=== PATIENT | male | born 1970 | race African-American/Black ===

== ENCOUNTER 2017-08-21 20:25 | Inpatient (IN) | payer MEDICAID ==
[~2017-08-21] VITALS: Ht 182.9 cm; Wt 75.6 kg
[~2017-08-21 20:25] MED LIST: LACT1CAP24 PO; LEVO750T26 PO; NICO-486 TD; TRAM-47 PO; ZOLP-413 PO
[2017-08-21 22:02] LABS: MEAN CORPUSCULAR HEMOGLOBIN 33.7 pg (27.5-34.5); MEAN CORPUSCULAR HGB CONC 33.2 g/dL (33.2-36.2); MEAN CORPUSCULAR VOLUME 101.4 fL (81-97); PLATELET COUNT 170 x10^3/uL (130-400); RED BLOOD COUNT 4.06 x10^6/uL (4.38-5.82); RED CELL DISTRIBUTION WIDTH 12.7 % (9.4-14.8)
[2017-08-21 22:10] LABS: ALANINE AMINOTRANSFERASE 111 U/L (12-78); ALBUMIN 2.6 g/dL (3.4-5.0); ANION GAP 8 mmol/L (5-15); CALCIUM 8.1 mg/dL (8.5-10.1); CHLORIDE 102 mmol/L (98-107); CREATININE 1.94 mg/dL (0.7-1.3)
[2017-08-21 22:13] LABS: ALKALINE PHOSPHATASE 82 U/L (45-117); BILIRUBIN,TOTAL 1.2 mg/dL (0.2-1.0); TOTAL PROTEIN 7.1 g/dL (6.4-8.2)
[2017-08-21 22:44] LABS: BASOPHILS % (AUTO) 0 % (0-1); EOSINOPHILS # (AUTO) 0.27 x10^3/uL (0-0.4); EOSINOPHILS % (AUTO) 2 % (1-7); LYMPHOCYTES # (AUTO) 1.28 x10^3/uL (1-3.4); LYMPHOCYTES % (AUTO) 8 % (22-44); MD SCAN; MONOCYTES % (AUTO) 8 % (2-9); NEUTROPHILS # (AUTO) 12.61 x10^3/uL (1.8-6.8); NEUTROPHILS % (AUTO) 82 % (42-75)
[2017-08-21] MEDS ORDERED: CEFTRIAXONE PMX 1GM/50ML 50 ML IV ONE (23:30)
[2017-08-21] MEDS ORDERED: SODIUM CHLORIDE 0.9% 1,000ML IVBOLUS ONE (23:30)
[2017-08-21 23:49] LABS: AMPHETAMINE SCREEN, URINE Positive (Negative); BARBITURATE SCREEN, URINE Negative (Negative); BENZODIAZEPINE SCREEN, URINE Negative (Negative); CANNABINOID SCREEN, URINE Positive (Negative); COCAINE SCREEN, URINE Negative (Negative); METHADONE SCREEN, URINE Negative (Negative); OPIATE SCREEN, URINE Negative (Negative)
[2017-08-21] MEDS ORDERED: CEFTRIAXONE PMX 1GM/50ML 50 ML ONE (23:57)
[2017-08-22] MEDS ORDERED: PHARMACY INSTRUCTION MC SCH (01:00)
[2017-08-22] MEDS ORDERED: POTASSIUM CHLORIDE 20 MEQ TAB.ER.PRT PO ONE (01:00)
[2017-08-22] MEDS ORDERED: ONDANSETRON 2MG/ML, 2ML IVPush PRN (01:00)
[2017-08-22] MEDS ORDERED: POLYETHYLENE GLYCOL 17 GM PACKET PO PRN (01:00)
[2017-08-22] MEDS ORDERED: DIPHENHYDRAMINE 25 MG CAPSULE PO PRN (01:00)
[2017-08-22] MEDS ORDERED: hydrALAzine 20 MG/ML, 1ML IVPush PRN (01:00)
[2017-08-22] MEDS: SODIUM CHLORIDE 0.9% 1,000 ML IV SCH ×3 (02:15→16:41)
[2017-08-22] MEDS: AMPICILLIN/SULBACTAM 3 GM in SODIUM CHLORIDE 0.9% 100 ML IV SCH ×4 (02:15→18:46)
[2017-08-22 02:39] VITALS: BP 106/70
[2017-08-22 06:15] VITALS: BP 106/70
[2017-08-22 06:58] VITALS: BP 108/68
[2017-08-22] MEDS ORDERED: ENOXAPARIN 30 MG/0.3 ML SQ SCH (09:00)
[2017-08-22] MEDS: ENOXAPARIN 40 MG/0.4 ML SQ SCH (09:29)
[2017-08-22 13:55] VITALS: BP 111/68
[2017-08-22 20:01] VITALS: BP 141/88
[2017-08-23] MEDS: AMPICILLIN/SULBACTAM 3 GM in SODIUM CHLORIDE 0.9% 100 ML IV SCH ×4 (01:35→18:24)
[2017-08-23] MEDS: HYDROcodone/APAP 5/325 TABLET PO PRN ×2 (01:41→08:12)
[2017-08-23 02:36] VITALS: BP 167/77
[2017-08-23 05:11] LABS: MEAN CORPUSCULAR HEMOGLOBIN 33.5 pg (27.5-34.5); MEAN CORPUSCULAR HGB CONC 33.1 g/dL (33.2-36.2); MEAN CORPUSCULAR VOLUME 101.3 fL (81-97); MEAN PLATELET VOLUME 8.9 fL (7.4-10.4); PLATELET COUNT 185 x10^3/uL (130-400); RED CELL DISTRIBUTION WIDTH 12.9 % (9.4-14.8)
[2017-08-23 05:23] LABS: CHLORIDE 107 mmol/L (98-107)
[2017-08-23 05:31] LABS: ANION GAP 7 mmol/L (5-15); CALCIUM 8.2 mg/dL (8.5-10.1); CREATININE 1.13 mg/dL (0.7-1.3)
[2017-08-23] MEDS: SODIUM CHLORIDE 0.9% 1,000 ML IV SCH ×2 (05:56→16:23)
[2017-08-23 06:13] LABS: BASOPHILS # (AUTO) 0.05 x10^3/uL (0-0.1); BASOPHILS % (AUTO) 0 % (0-1); EOSINOPHILS # (AUTO) 0.37 x10^3/uL (0-0.4); EOSINOPHILS % (AUTO) 2 % (1-7); LYMPHOCYTES # (AUTO) 1.44 x10^3/uL (1-3.4); LYMPHOCYTES % (AUTO) 9 % (22-44); MD SCAN; MONOCYTES # (AUTO) 1.33 x10^3/uL (0.2-0.8); MONOCYTES % (AUTO) 9 % (2-9); NEUTROPHILS # (AUTO) 12.44 x10^3/uL (1.8-6.8); NEUTROPHILS % (AUTO) 80 % (42-75)
[2017-08-23 08:04] VITALS: BP 128/65
[2017-08-23] MEDS: ENOXAPARIN 40 MG/0.4 ML SQ SCH (08:10)
[2017-08-23] MEDS: POTASSIUM CHLORIDE 20 MEQ TAB.ER.PRT PO SCH ×2 (11:42→16:23)
[2017-08-23 14:16] VITALS: BP 137/80
[2017-08-23 19:37] VITALS: BP 144/85
[2017-08-24] MEDS: AMPICILLIN/SULBACTAM 3 GM in SODIUM CHLORIDE 0.9% 100 ML IV SCH ×4 (01:08→20:23)
[2017-08-24] MEDS: SODIUM CHLORIDE 0.9% 1,000 ML IV SCH ×2 (02:12→14:17)
[2017-08-24 02:23] VITALS: BP 132/56
[2017-08-24 05:14] LABS: MEAN CORPUSCULAR HEMOGLOBIN 33.6 pg (27.5-34.5); MEAN CORPUSCULAR HGB CONC 33.1 g/dL (33.2-36.2); MEAN CORPUSCULAR VOLUME 101.3 fL (81-97); PLATELET COUNT 243 x10^3/uL (130-400); RED BLOOD COUNT 3.57 x10^6/uL (4.38-5.82); RED CELL DISTRIBUTION WIDTH 12.7 % (9.4-14.8)
[2017-08-24 05:18] LABS: CHLORIDE 110 mmol/L (98-107)
[2017-08-24 05:31] LABS: ALANINE AMINOTRANSFERASE 72 U/L (12-78); ALBUMIN 2.1 g/dL (3.4-5.0); ALKALINE PHOSPHATASE 73 U/L (45-117); ANION GAP 5 mmol/L (5-15); BILIRUBIN,TOTAL 0.6 mg/dL (0.2-1.0); CALCIUM 7.9 mg/dL (8.5-10.1); CREATININE 1.09 mg/dL (0.7-1.3); TOTAL PROTEIN 6.4 g/dL (6.4-8.2)
[2017-08-24 06:21] LABS: BASOPHILS # (AUTO) 0.08 x10^3/uL (0-0.1); BASOPHILS % (AUTO) 1 % (0-1); EOSINOPHILS # (AUTO) 0.61 x10^3/uL (0-0.4); EOSINOPHILS % (AUTO) 4 % (1-7); LYMPHOCYTES # (AUTO) 1.87 x10^3/uL (1-3.4); LYMPHOCYTES % (AUTO) 11 % (22-44); MD SCAN; MONOCYTES # (AUTO) 1.99 x10^3/uL (0.2-0.8); MONOCYTES % (AUTO) 11 % (2-9); NEUTROPHILS # (AUTO) 13.07 x10^3/uL (1.8-6.8); NEUTROPHILS % (AUTO) 74 % (42-75)
[2017-08-24 06:50] VITALS: BP 126/78
[2017-08-24] MEDS: ENOXAPARIN 40 MG/0.4 ML SQ SCH (07:54)
[2017-08-24] MEDS ORDERED: MAGNESIUM SULFATE PMX 2GM/50ML 50 ML IV ONE (08:00)
[2017-08-24] MEDS ORDERED: PHARMACOKINETIC MONITORING MC PRN (08:00)
[2017-08-24] MEDS ORDERED: VANCOMYCIN PER PHARMACY MC PRN (08:00)
[2017-08-24 13:27] VITALS: BP 132/87
[2017-08-24] MEDS: VANCOMYCIN 1,700 MG in SODIUM CHLORIDE 0.9% 250 ML IV SCH (16:23)
[2017-08-24 18:39] VITALS: BP 132/81
[2017-08-24] MEDS: ACETAMINOPHEN 325 MG TABLET PO PRN (20:25)
[2017-08-25] MEDS: ACETAMINOPHEN 325 MG TABLET PO PRN (01:20)
[2017-08-25 02:51] VITALS: BP 148/82
[2017-08-25] MEDS: AMPICILLIN/SULBACTAM 3 GM in SODIUM CHLORIDE 0.9% 100 ML IV SCH ×2 (02:57→08:27)
[2017-08-25] MEDS: SODIUM CHLORIDE 0.9% 1,000 ML IV SCH (02:57)
[2017-08-25] MEDS: VANCOMYCIN 1,700 MG in SODIUM CHLORIDE 0.9% 250 ML IV SCH (04:19)
[2017-08-25 05:14] LABS: MEAN CORPUSCULAR HEMOGLOBIN 33.4 pg (27.5-34.5); MEAN CORPUSCULAR HGB CONC 32.8 g/dL (33.2-36.2); MEAN CORPUSCULAR VOLUME 101.8 fL (81-97); MEAN PLATELET VOLUME 8.5 fL (7.4-10.4); PLATELET COUNT 300 x10^3/uL (130-400); RED BLOOD COUNT 3.75 x10^6/uL (4.38-5.82); RED CELL DISTRIBUTION WIDTH 12.6 % (9.4-14.8)
[2017-08-25 05:20] LABS: % IRON SATURATION 25 % (20-55); IRON LEVEL 56 mcg/dL (65-175); TOTAL IRON BINDING CAPACITY 221 mcg/dL (250-450)
[2017-08-25 05:58] LABS: MD YES
[2017-08-25 06:05] LABS: <PLATELET ESTIMATE> ADEQUATE; BAND#(MANUAL) 0.65 x10^3/uL; BANDS%(MANUAL) 4 % (0-7); BASOS#(MANUAL) 0.33 x10^3/uL (0-0.1); BASOS% (MANUAL) 2 % (0-1); EOS#(MANUAL) 0.82 x10^3/uL (0.0-0.4); EOS% (MANUAL) 5 % (1-7); LYMPH#(MANUAL) 2.28 x10^3/uL (1-3.4); LYMPHS% (MANUAL) 14 % (22-44); METAMYELOCYTES# (MANUAL) 0.65 x10^3/uL (0-0); METAMYELOCYTES% (MANUAL) 4 % (0-1); MONOS#(MANUAL) 1.96 x10^3/uL (0.3-2.7); MONOS% (MANUAL) 12 % (2-9); MYELOCYTES# (MANUAL) 0.82 x10^3/uL (0-0); MYELOCYTES% (MANUAL) 5 % (0-0); SEGS% (MANUAL) 54 % (42-75)
[2017-08-25 06:06] LABS: LARGE PLATELETS 1+
[2017-08-25 08:07] VITALS: BP 143/82
[2017-08-25] MEDS: ENOXAPARIN 40 MG/0.4 ML SQ SCH (08:28)
[2017-08-25] MEDS: HYDROcodone/APAP 5/325 TABLET PO PRN (13:02)
[2017-08-25 13:40] VITALS: BP 144/92
[2017-08-25 19:01] VITALS: BP 139/75
[2017-08-25] MEDS: SULFAMETH./TRIMETHOPRIM DS 800MG/160MG TABLET PO SCH (20:43)
[2017-08-26 01:38] VITALS: BP 118/80
[2017-08-26 07:45] VITALS: BP 132/82
[2017-08-26] MEDS: SULFAMETH./TRIMETHOPRIM DS 800MG/160MG TABLET PO SCH ×2 (08:33→20:06)
[2017-08-26] MEDS: ENOXAPARIN 40 MG/0.4 ML SQ SCH (08:33)
[2017-08-26 09:41] LABS: HCT (SEDRATE) 38.8 % (39.2-51.8)
[2017-08-26 10:42] LABS: HIGH-SENSITIVITY CRP 6.3 mg/dL (0.02-0.30)
[2017-08-26] MEDS ORDERED: GADOBUTROL 10 MMOL/10 ML PFS ONE (11:06)
[2017-08-26 13:38] VITALS: BP 114/76
[2017-08-26 18:47] VITALS: BP 129/81
[2017-08-26] MEDS: HYDROcodone/APAP 5/325 TABLET PO PRN (20:13)
[2017-08-27 01:04] VITALS: BP 133/79
[2017-08-27 07:22] VITALS: BP 125/77
[2017-08-27] MEDS: HYDROcodone/APAP 5/325 TABLET PO PRN (09:50)
[2017-08-27] MEDS: SULFAMETH./TRIMETHOPRIM DS 800MG/160MG TABLET PO SCH (09:50)
[2017-08-27] MEDS: ENOXAPARIN 40 MG/0.4 ML SQ SCH (09:50)
[2017-08-27 09:52] LABS: MD YES; MEAN CORPUSCULAR HEMOGLOBIN 33.4 pg (27.5-34.5); MEAN CORPUSCULAR VOLUME 101.2 fL (81-97); MEAN PLATELET VOLUME 8.3 fL (7.4-10.4); PLATELET COUNT 398 x10^3/uL (130-400); RED BLOOD COUNT 3.86 x10^6/uL (4.38-5.82); RED CELL DISTRIBUTION WIDTH 12.7 % (9.4-14.8)
[2017-08-27 09:56] LABS: ALANINE AMINOTRANSFERASE 64 U/L (12-78); ALBUMIN 2.7 g/dL (3.4-5.0); ANION GAP 2 mmol/L (5-15); CALCIUM 8.6 mg/dL (8.5-10.1); CHLORIDE 105 mmol/L (98-107); CREATININE 1.55 mg/dL (0.7-1.3)
[2017-08-27 09:59] LABS: ALKALINE PHOSPHATASE 70 U/L (45-117); BILIRUBIN,TOTAL 0.5 mg/dL (0.2-1.0)
[2017-08-27 10:12] LABS: BAND#(MANUAL) 0.36 x10^3/uL; BANDS%(MANUAL) 2 % (0-7); BASOS#(MANUAL) 0.36 x10^3/uL (0-0.1); BASOS% (MANUAL) 2 % (0-1); EOS#(MANUAL) 0.72 x10^3/uL (0.0-0.4); EOS% (MANUAL) 4 % (1-7); LYMPH#(MANUAL) 2.69 x10^3/uL (1-3.4); LYMPHS% (MANUAL) 15 % (22-44); METAMYELOCYTES# (MANUAL) 0.18 x10^3/uL (0-0); METAMYELOCYTES% (MANUAL) 1 % (0-1); MONOS#(MANUAL) 0.54 x10^3/uL (0.3-2.7); MONOS% (MANUAL) 3 % (2-9); MYELOCYTES# (MANUAL) 0.18 x10^3/uL (0-0); MYELOCYTES% (MANUAL) 1 % (0-0); SEG#(MANUAL) 12.89 x10^3/uL (1.8-6.8); SEGS% (MANUAL) 72 % (42-75)
[2017-08-27 10:13] LABS: <PLATELET ESTIMATE> ADEQUATE; LARGE PLATELETS 1+; POLYCHROMASIA 1+
[2017-08-27] MEDS ORDERED: PHARMACY MAY ADJ FOR RENAL FX MC PRN (11:00)
[2017-08-27] MEDS: AMOXICILLIN/CLAV 875-125MG TABLET PO SCH ×2 (12:58→23:02)
[2017-08-27] MEDS: SODIUM CHLORIDE 0.9% 1,000 ML IV SCH ×2 (12:58→23:02)
[2017-08-27] MEDS: DOXYCYCLINE 100MG TABLET PO SCH ×2 (12:58→23:02)
[2017-08-27 13:18] VITALS: BP 114/76
[2017-08-27 13:43] LABS: MICROSCOPIC AUTO
[2017-08-27 13:46] LABS: CULTURE INDICATED? NO
[2017-08-27 19:35] VITALS: BP 105/74
[2017-08-27] MEDS: HEPARIN 5,000 UNITS/ML, 1ML SQ SCH (20:02)
[2017-08-28 00:27] VITALS: BP 130/85
[2017-08-28] MEDS: HEPARIN 5,000 UNITS/ML, 1ML SQ SCH ×2 (04:56→13:00)
[2017-08-28 07:31] VITALS: BP 115/73
[2017-08-28 09:24] LABS: MEAN CORPUSCULAR HEMOGLOBIN 33.4 pg (27.5-34.5); MEAN CORPUSCULAR VOLUME 101.5 fL (81-97); MEAN PLATELET VOLUME 8.3 fL (7.4-10.4); PLATELET COUNT 405 x10^3/uL (130-400); RED CELL DISTRIBUTION WIDTH 12.8 % (9.4-14.8)
[2017-08-28 09:30] LABS: ANION GAP 3 mmol/L (5-15); CALCIUM 8.7 mg/dL (8.5-10.1); CHLORIDE 106 mmol/L (98-107); CREATININE 1.56 mg/dL (0.7-1.3)
[2017-08-28] MEDS: DOXYCYCLINE 100MG TABLET PO SCH (09:35)
[2017-08-28] MEDS: HYDROcodone/APAP 5/325 TABLET PO PRN (09:35)
[2017-08-28 10:02] LABS: BASOPHILS # (AUTO) 0.03 x10^3/uL (0-0.1); BASOPHILS % (AUTO) 0 % (0-1); EOSINOPHILS # (AUTO) 0.41 x10^3/uL (0-0.4); EOSINOPHILS % (AUTO) 3 % (1-7); LYMPHOCYTES % (AUTO) 13 % (22-44); MD SCAN; MONOCYTES # (AUTO) 1.45 x10^3/uL (0.2-0.8); MONOCYTES % (AUTO) 10 % (2-9); NEUTROPHILS # (AUTO) 11.08 x10^3/uL (1.8-6.8); NEUTROPHILS % (AUTO) 75 % (42-75)
[2017-08-28] MEDS ORDERED: SODIUM CHLORIDE 0.9% 1,000 ML IV SCH (11:00)
[2017-08-28] MEDS: AMOXICILLIN/CLAV 875-125MG TABLET PO SCH (11:22)
[2017-08-28] MEDS ORDERED: DOXY100T PO (14:08)
[2017-08-28] MEDS ORDERED: AMOX1TAB12 PO (14:08)
[2017-08-28] MEDS ORDERED: ACET325T14 PO (14:08)
[2017-08-28 14:18] VITALS: BP 111/71
== END 2017-08-28 15:17 | disposition left against medical advice (07) | DRG 602 ==
LOC: ED 23:53 → SUATTDRO 08-22 00:20 → EDIP 08-22 00:37 → 3NE 08-22 01:41
PROVIDERS: ADMIT Hospitalist; ATTEND Hospitalist
DX: L03.115 Cellulitis of right lower limb (principal); E43 Unspecified severe protein-calorie malnutrition; N17.0 Acute kidney failure with tubular necrosis; L03.116 Cellulitis of left lower limb; F12.10 Cannabis abuse, uncomplicated; D64.9 Anemia, unspecified; F15.10 Other stimulant abuse, uncomplicated; B95.61 Methicillin susceptible Staphylococcus aureus infection as the cause of diseases classified elsewhere; B95.1 Streptococcus, group B, as the cause of diseases classified elsewhere; F17.210 Nicotine dependence, cigarettes, uncomplicated; Z59.0 Homelessness; Z82.49 Family history of ischemic heart disease and other diseases of the circulatory system; Z91.19 Patient's noncompliance with other medical treatment and regimen; Z68.22 Body mass index [BMI] 22.0-22.9, adult
CPT/HCPCS: 36415; 80048; 80053; 80307; 81001; 82550; 83540; 83550; 83735; 84100; 85025; 85651; 86141; 87040; 87070; 87077; 87147; 87186; 87205; 96365; A9585; J0295; J0696; J1644; J1650; J3370; J3475; J7030; J7050

== ENCOUNTER 2017-09-19 13:33 | Emergency (ER) | payer MEDICAID, OTHER ==
[~2017-09-19] VITALS: Ht 180.3 cm; Wt 84.0 kg
[~2017-09-19 13:33] MED LIST changes: +ACET325T14 PO; +AMOX1TAB12 PO; +DOXY100T PO
[2017-09-19] MEDS ORDERED: ACETAMINOPHEN 650 MG/20.3 ML UDC PO ONE (14:00)
[2017-09-19] MEDS ORDERED: ACETAMINOPHEN 500 MG TABLET ONE (14:26)
[2017-09-19 15:53] VITALS: BP 175/57
== END 2017-09-19 16:07 | disposition home or self-care (01) ==
LOC: MERGE 13:33 → EDBD 13:33 → ED 16:01
DX: M79.661 Pain in right lower leg (principal)
CPT/HCPCS: 93005; 99284

== ENCOUNTER 2018-05-19 12:44 | Emergency (ER) | payer MEDICAID ==
[~2018-05-19] VITALS: Ht 180.3 cm; Wt 85.5 kg
[2018-05-19 13:27] VITALS: BP 168/91
--- NOTE | 2018-05-19 13:30 | NUR ---
SBAR REPORT FROM IFTIKHAR VORA RN. PT RESTING ON YG. RICHARD. ALL CONCERNS ADRESSED.
[2018-05-19] MEDS ORDERED: MUPI22OI2 TP (13:53)
--- NOTE | 2018-05-19 14:17 | NUR ---
TASK RN: DC EDUCATION PROVIDED, PT DEMONSTRATES UNDERSTANDING. PT AMBULATED STEADILY TO DC WITH RN. PT STATES THAT HE WILL BE WALKING HOME. PT DRESSED APPROPRIATELY FOR WEATHER.
[2018-05-19] MEDS ORDERED: MUPIROCIN OINT 2%, 22GM TP SCH (16:00)
== END 2018-05-19 14:21 | disposition home or self-care (01) ==
LOC: ED 14:14
DX: R21 Rash and other nonspecific skin eruption (principal); F15.20 Other stimulant dependence, uncomplicated; F17.210 Nicotine dependence, cigarettes, uncomplicated; R41.82 Altered mental status, unspecified; Z59.0 Homelessness
CPT/HCPCS: 99283